=== PATIENT | female | born 1940 | race American Indian/Alaskan Native ===

== ENCOUNTER 2017-10-30 06:38 | Day surgery (SDC) | payer MEDICARE, OTHER ==
[2017-10-18 10:19] VITALS: BMI 24.1
[2017-10-30] MEDS ORDERED: Propofol 10 mg/ml Inj (20 ML) ONE (07:52)
[2017-10-30] MEDS ORDERED: Lidocaine 1% Inj (20ml) ONE (08:03)
[2017-10-30] MEDS ORDERED: Sodium Chloride 0.9% 1,000 ML IV SCH (09:30)
[2017-10-30 10:02] VITALS: BP 128/84; PULSE 78; RESP 16; TEMP 97.6; O2SAT 99
== END 2017-10-30 10:40 | disposition home or self-care (01) ==
LOC: ENDO 06:38
PROVIDERS: ATTEND Specialist
DX: K31.7 Polyp of stomach and duodenum (principal); I10 Essential (primary) hypertension
CPT/HCPCS: 43251; 88305; 88342; J2704; J7040 ×2